=== PATIENT | male | born 1995 | race African-American/Black ===

== ENCOUNTER 2017-08-30 23:19 | Emergency (ER) | payer MEDICAID, OTHER ==
[~2017-08-30] VITALS: Ht 172.7 cm; Wt 81.6 kg
[2017-08-30 23:24] VITALS: BP_SYST 151
--- NOTE | 2017-08-30 23:29 | NUR ---
ER IN TRIAGE examining patient.
--- NOTE | 2017-08-30 23:29 | NUR ---
Patient to ER bed 3 to gown for evaluation. Side rails up. Report given to СЕРГЕЙ VINSON.
--- NOTE | 2017-08-30 23:30 | NUR ---
Pt brought in by girlfriend in stable condition. Pt c/o left ring finger deformity s/p hitting the floor while playing basketball. Pt denies pain to the site but states he feel tingling to the finger. Pt stated he has injured his fingers in the past from playing basketball. Obvious deformity noted. +swelling -redness. No acute distress noted at this time, will continue to monitor.
[2017-08-31 00:26] VITALS: BP_SYST 132
--- NOTE | 2017-08-31 00:30 | NUR ---
Patient given written and verbal discharge instructions and verbalizes understanding. ER MD FARRELL discussed with patient the results and treatment provided. Patient in stable condition. ID arm band removed. Rx of MOTRIN 800 given. Patient educated on pain management and to follow up with PMD. Pain Scale 0/10. Opportunity for questions provided and answered.
== END 2017-08-31 00:26 | disposition home or self-care (01) ==
LOC: SED 23:19
DX: S63.255A Unspecified dislocation of left ring finger, initial encounter (principal); Z88.0 Allergy status to penicillin; W01.0XXA Fall on same level from slipping, tripping and stumbling without subsequent striking against object, initial encounter; Y93.67 Activity, basketball; Y92.320 Baseball field as the place of occurrence of the external cause; Y99.8 Other external cause status
CPT/HCPCS: 99284

== ENCOUNTER 2019-10-06 09:47 | Emergency (ER) | payer MEDICAID ==
[~2019-10-06] VITALS: Ht 172.7 cm; Wt 90.7 kg
[2019-10-06 10:04] VITALS: BP_SYST 133
--- NOTE | 2019-10-06 10:57 | NUR ---
Patient to ER bed h2 to gown for evaluation. Side rails up. Report given to СЕРГЕЙ HUSTON.
--- NOTE | 2019-10-06 11:20 | NUR ---
Pt brought by self, A&Ox4, pt presents to ER with redness on bilateral wyes with white discharge, afebrile, skin pink and warm, cap refill <3.
--- NOTE | 2019-10-06 11:30 | NUR ---
Dr Hunter at bedside examining patient
[2019-10-06 12:00] VITALS: BP_SYST 133
--- NOTE | 2019-10-06 12:00 | NUR ---
Patient given written and verbal discharge instructions and verbalizes understanding. ER MD discussed with patient the results and treatment provided. Patient in stable condition. ID arm band removed. Rx of Patanol and Ofloxacin given. Patient educated on pain management and to follow up with PMD. Pain Scale 2/10 . Opportunity for questions provided and answered. Medication side effect fact sheet provided.
== END 2019-10-06 12:00 | disposition home or self-care (01) ==
LOC: SED 09:47
DX: H10.89 Other conjunctivitis (principal); Z88.0 Allergy status to penicillin
CPT/HCPCS: 99283

== ENCOUNTER 2019-10-11 14:47 | Emergency (ER) | payer MEDICAID ==
[~2019-10-11] VITALS: Ht 172.7 cm; Wt 90.7 kg
[2019-10-11 14:50] VITALS: BP_SYST 140
[2019-10-11 16:30] VITALS: BP_SYST 140
== END 2019-10-11 16:30 | disposition home or self-care (01) ==
LOC: SED 14:47
DX: H10.89 Other conjunctivitis (principal); Z88.0 Allergy status to penicillin
CPT/HCPCS: 99283